=== PATIENT | female | born 1950 | race Hispanic/Latino ===

== ENCOUNTER 2017-11-05 08:54 | Emergency (ER) | payer OTHER ==
[2017-11-05] MEDS ORDERED: ZOFRAN IV ONE (09:40)
[2017-11-05] MEDS ORDERED: SUBLIMAZE IV ONE (09:40)
--- NOTE | 2017-11-05 09:57 | Emergency Department Report ---
HPI - General Chief Complaint: Fall Time Seen by Provider: 11/05/17 09:29 - HPI HPI: Room 3 The patient is a 67-year-old female presenting with a chief complaint of pain after fall. The patient states this morning at approximately 06:30 she tripped while getting out of bed and landed on her right shoulder. The patient states she also struck her head but did not lose consciousness. Patient complains of pain in the right shoulder, elbow and wrist. The patient gives her pain a score of "15/10." Location: [See above] Duration: [See above] Quality: Pain Severity: "15/10" Modifying factors: [see above] Context: [see above] Mode of transportation: [not driving] ED Past Medical Hx - Past Medical History Previous Medical History?: Yes Hx Hypertension: Yes Hx Diabetes: Yes Hx Psychiatric Treatment: Yes (depression) Additional medical history: neuropathy - Surgical History Past Surgical History?: No Additional Surgical History: Right knee repair, partial hysterectomy - Family History Family history: no significant - Social History Smoking Status: Former Smoker (none 4 years) Substance Use Type: None - Medications Home Medications: Home Medications Medication Instructions Recorded Confirmed Last Taken Type HYDROcodone/APAP 5-325 [[place] 1 - 2 each PO Q4-6H PRN #30 tablet 11/05/17 Unknown Rx 5/325] ED Review of Systems ROS: Stated complaint: RT SHOULDER PAIN/FALL Other details as noted in HPI Constitutional: no symptoms reported Eyes: denies: eye pain ENT: denies: throat pain Cardiovascular: denies: chest pain Gastrointestinal: denies: abdominal pain Genitourinary: denies: dysuria Musculoskeletal: arthralgia, myalgia. denies: back pain Neurological: denies: headache Physical Exam - Physical Exam Vital Signs: Vital Signs 11/05/17 11/05/17 11/05/17 09:13 09:35 09:47 Temperature 98.4 F Pulse Rate 65 Respiratory 16 16 16 Rate Blood Pressure 127/59 O2 Sat by Pulse 97 97 Oximetry Physical Exam: GENERAL: The patient is well-developed well-nourished female sitting on stretcher with right upper extremity and sling. BUN mild discomfort. [] HEENT: Normocephalic. Approximately 3 cm diameter hematoma to the mid forehead. Extraocular motions are intact. Patient has moist mucous membranes. There are no raccoon eyes. NECK: Supple. There is no axial tenderness to palpation or step-off CHEST/LUNGS: Clear to auscultation. There is no respiratory distress noted. HEART/CARDIOVASCULAR: Regular. There is no tachycardia. There is no gallop rub or murmur. ABDOMEN: Abdomen is soft, nontender. Patient has normal bowel sounds. There is no abdominal distention. SKIN: There is no rash. There is no edema. There is no diaphoresis. NEURO: The patient is awake, alert, and oriented. The patient is cooperative. The patient has no focal neurologic deficits. The patient has normal speech. Cranial nerves II through XII grossly intact however cranial nerve XI not tested secondary to patient having severe pain with movement of the right shoulder MUSCULOSKELETAL: There is tenderness to palpation of the right shoulder, right elbow, right forearm and right wrist. There is no thoracic or lumbar axial spine tenderness. There is no tenderness to palpation of bilateral lower extremities were the left upper extremity ED Course Vital Signs 11/05/17 11/05/17 11/05/17 09:13 09:35 09:47 Temperature 98.4 F Pulse Rate 65 Respiratory 16 16 16 Rate Blood Pressure 127/59 O2 Sat by Pulse 97 97 Oximetry ED Medical Decision Making - Radiology Data Radiology results: report reviewed (CT head, CT cervical spine, right shoulder x -ray, right elbow x-ray, right forearm x-ray, right wrist x-ray), image reviewed (CT head, CT cervical spine, right shoulder x-ray, right elbow x-ray, right forearm x-ray, right wrist x-ray) interpreted by me: Right shoulder l-afu-qajtgoxbjb humeral head fracture Right elbow e-jlt-bccrprtv radial head fracture Right forearm z-yfk-tnqqlzax radial head fracture Right wrist x-ray-no acute fracture [facility] [address] [place] [address] Cat Scan Report Signed Patient: FABRICE DENNIS MR#: [id number] : 1950 Acct:[id number] Age/Sex: 67 / F ADM Date: 11/05/17 Loc: ED Attending Dr: Ordering Physician: JAVIER RAMIREZ MD Date of Service: 11/05/17 Procedure(s): CT head/brain wo con Accession Number(s): [id number] cc: JAVIER RAMIRZE MD CT HEAD WITHOUT CONTRAST INDICATION: Head injury after fall. COMPARISON: None similar. FINDINGS: Noncontrast head CT slightly limited due to patient's head tilt/positioning, though demonstrates symmetric, age-appropriate ventricles and sulci. Approximately 5 mm right ganglionic lacunar infarct, axial image 29, series 2. No acute infarct, hemorrhage, mass effect or midline shift. No abnormal extra axial fluid collections. Normal posterior fossa with preserved basilar cisterns. Normal imaged eye globes. Streak artifact from few radiopaque dental fillings. Numerous missing teeth also noted. Moderate rightward nasal septal deviation and approximately 5 mm rightward nasal septal spur, axial image 12. Clear imaged paranasal sinuses and mastoid air cells. Slight atherosclerotic ICA calcifications. Intact calvarium. Slight left frontal scalp swelling suspected, axial image 40. CONCLUSION: No acute intracranial CT abnormality with slight left scalp swelling suspected and various other incidental findings, as above. Please correlate. Thank you for the opportunity to participate in this patient's care. Transcribed By: RS Dictated By: CHIKI CISNEROS MD Electronically Authenticated By: CHIKI CISNEROS MD Signed Date/Time: 11/05/17 1023 DD/ 1017 TD/TT: 11/05/17 1023 [facility] [address] [place] [address] Cat Scan Report Signed Patient: FABRICE DENNIS MR#: [id number] : 1950 Acct:[id number] Age/Sex: 67 / F ADM Date: 11/05/17 Loc: ED Attending Dr: Ordering Physician: JAVIER RAMIREZ MD Date of Service: 11/05/17 Procedure(s): CT cervical spine wo con Accession Number(s): [id number] cc: JAVIER RAMIREZ MD CT CERVICAL SPINE WITHOUT CONTRAST INDICATION: Head injury after fall. COMPARISON: None similar. FINDINGS: Noncontrast axial, sagittal and coronal CT reconstructions through the cervical spine demonstrate normal imaged intracranial appearance. Rightward nasal septal deviation and septal spur noted. Slight right maxillary sinus mucosal thickening inferiorly. Clear mastoid air cells. Streak artifact from few radiopaque dental material limits exam. Intact craniocervical articulation with normal prevertebral soft tissues and the airway. Normal dens, occipital condyles and anterior and posterior arches of C1. Advanced degenerative changes noted from C4-C7 with severe disc narrowing, osteophyte formation and sclerosis, greatest at C5-C6. Slight degenerative loss of C5 and C6 vertebral body heights. Assessment of the spinal canal itself compromised from C6 inferiorly due to artifact from shoulder soft tissues. Normal imaged thyroid. Slight biapical scarring. On the obtained axial images: C2-C3 demonstrates moderate facet arthropathy, left more than right. C4-C5 also demonstrates moderate right and mild left facet arthropathy. Bilateral uncovertebral spurring as well. C4-C5 also demonstrates moderate right and mild left facet arthropathy. Right more than left uncovertebral spurring. C5-C6 demonstrates mild bilateral facet arthropathy. Mild diffuse disc bulge and left more than right uncovertebral spurring with left neural foraminal narrowing suspected as on axial image 87, series 5. C6-C7 demonstrates moderate right and mild left facet arthropathy, axial image 92. C7-T1 also demonstrate bilateral facet arthropathy, left more than right, axial image 99. CONCLUSION: No acute cervical spine CT abnormality with multilevel degenerative changes and other findings, as described. Please correlate. Thank you for the opportunity to participate in this patient's care. Transcribed By: RS Dictated By: CHIKI CISNEROS MD Electronically Authenticated By: CHIKI CISNEROS MD Signed Date/Time: 11/05/17 1037 DD/ 1024 TD/TT: 11/05/17 1037 [facility] [address] [place] [address] XRay Report Signed Patient: FABRICE DENNIS MR#: [id number] : 1950 Acct:[id number] Age/Sex: 67 / F ADM Date: 11/05/17 Loc: ED Attending Dr: Ordering Physician: JAVIER RAMIREZ MD Date of Service: 11/05/17 Procedure(s): XR shoulder 2+V RT Accession Number(s): [id number] cc: JAVIER RAMIREZ MD Fluoro Time In Minutes: RIGHT SHOULDER, 3 VIEWS: HISTORY: right shoulder pain. Comminuted fracture of the right humeral head and neck is identified. There is probable intra-articular extension at the glenohumeral joint. There is normal articulation at the acromioclavicular joint. The soft tissues are unremarkable. IMPRESSION: Comminuted fracture of the right humeral head and neck. Transcribed By: TTR Dictated By: KRAIG TRAN JR, MD Electronically Authenticated By: KRAIG TRAN JR, MD Signed Date/Time: 11/05/17 104 DD/ 104 TD/TT: 11/05/17 104 [facility] [address] [place] [address] XRay Report Signed Patient: FABRICE DENNIS MR#: [id number] : 1950 Acct:[id number] Age/Sex: 67 / F ADM Date: 11/05/17 Loc: ED Attending Dr: Ordering Physician: JAVIER RAMIREZ MD Date of Service: 11/05/17 Procedure(s): XR forearm RT Accession Number(s): [id number] cc: JAVIER RAMIREZ MD Fluoro Time In Minutes: RIGHT FOREARM, 2 views: History: Pain after fall. A very subtle nondisplaced fracture of the lateral radial head is suspected. The remainder of the radius and ulna are grossly intact. The soft tissues are unremarkable. IMPRESSION: Nondisplaced radial head fracture. Transcribed By: TTR Dictated By: KRAIG TRAN JR, MD Electronically Authenticated By: KRAIG TRAN JR, MD Signed Date/Time: 11/05/171048 DD/ 47 TD/TT: 11/05/17 104 Right wrist x-ray to see his regular radiologist) C-right wrist volar soft tissue swelling possible without acute bony abnormality. - Differential Diagnosis closed head injury, shoulder dislocation, shoulder fracture Critical care attestation.: If time is entered above; I have spent that time in minutes in the direct care of this critically ill patient, excluding procedure time. ED Disposition Clinical Impression: Fracture of humeral head, right, closed, Right radial head fracture, Closed head injury Disposition: - TO HOME OR SELFCARE Is pt being admited?: No Does the pt Need Aspirin: No Instructions: Arm Fracture in Adults (ED) Additional Instructions: Return to the emergency department immediately should you develop worsening symptoms, fever, inability to tolerate food or liquid or any other concerns. Prescriptions: HYDROcodone/APAP 5-325 [[place] 5/325] 1 - 2 each PO Q4-6H PRN #30 tablet PRN Reason: Pain Referrals: LAURA MONTANO MD [Staff Physician] - 2-3 Days (Dr. Montano is an orthopedic surgeon. Please follow up with him for further evaluation) Time of Disposition: 12:03
--- NOTE | 2017-11-05 10:30 | Cat Scan Report ---
CT HEAD WITHOUT CONTRAST INDICATION: Head injury after fall. COMPARISON: None similar. FINDINGS: Noncontrast head CT slightly limited due to patient's head tilt/positioning, though demonstrates symmetric, age-appropriate ventricles and sulci. Approximately 5 mm right ganglionic lacunar infarct, axial image 29, series 2. No acute infarct, hemorrhage, mass effect or midline shift. No abnormal extra axial fluid collections. Normal posterior fossa with preserved basilar cisterns. Normal imaged eye globes. Streak artifact from few radiopaque dental fillings. Numerous missing teeth also noted. Moderate rightward nasal septal deviation and approximately 5 mm rightward nasal septal spur, axial image 12. Clear imaged paranasal sinuses and mastoid air cells. Slight atherosclerotic ICA calcifications. Intact calvarium. Slight left frontal scalp swelling suspected, axial image 40. CONCLUSION: No acute intracranial CT abnormality with slight left scalp swelling suspected and various other incidental findings, as above. Please correlate. Thank you for the opportunity to participate in this patient's care.
--- NOTE | 2017-11-05 10:44 | Cat Scan Report ---
CT CERVICAL SPINE WITHOUT CONTRAST INDICATION: Head injury after fall. COMPARISON: None similar. FINDINGS: Noncontrast axial, sagittal and coronal CT reconstructions through the cervical spine demonstrate normal imaged intracranial appearance. Rightward nasal septal deviation and septal spur noted. Slight right maxillary sinus mucosal thickening inferiorly. Clear mastoid air cells. Streak artifact from few radiopaque dental material limits exam. Intact craniocervical articulation with normal prevertebral soft tissues and the airway. Normal dens, occipital condyles and anterior and posterior arches of C1. Advanced degenerative changes noted from C4-C7 with severe disc narrowing, osteophyte formation and sclerosis, greatest at C5-C6. Slight degenerative loss of C5 and C6 vertebral body heights. Assessment of the spinal canal itself compromised from C6 inferiorly due to artifact from shoulder soft tissues. Normal imaged thyroid. Slight biapical scarring. On the obtained axial images: C2-C3 demonstrates moderate facet arthropathy, left more than right. C4-C5 also demonstrates moderate right and mild left facet arthropathy. Bilateral uncovertebral spurring as well. C4-C5 also demonstrates moderate right and mild left facet arthropathy. Right more than left uncovertebral spurring. C5-C6 demonstrates mild bilateral facet arthropathy. Mild diffuse disc bulge and left more than right uncovertebral spurring with left neural foraminal narrowing suspected as on axial image 87, series 5. C6-C7 demonstrates moderate right and mild left facet arthropathy, axial image 92. C7-T1 also demonstrate bilateral facet arthropathy, left more than right, axial image 99. CONCLUSION: No acute cervical spine CT abnormality with multilevel degenerative changes and other findings, as described. Please correlate. Thank you for the opportunity to participate in this patient's care.
--- NOTE | 2017-11-05 10:48 | XRay Report ---
RIGHT ELBOW RADIOGRAPHS INDICATION: Pain after fall. COMPARISON: None similar. FINDINGS: An AP and somewhat suboptimally positioned lateral right elbow radiographs demonstrate grossly intact bony articulation and appearance. No abnormal fat pad sign appreciated with grossly unremarkable soft tissues. CONCLUSION: No acute right elbow radiographic abnormality, as described. Please correlate. Thank you for the opportunity to participate in this patient's care.
--- NOTE | 2017-11-05 10:51 | XRay Report ---
RIGHT WRIST RADIOGRAPHS INDICATION: Pain after fall. COMPARISON: None similar. FINDINGS: AP, lateral and oblique right wrist radiographs demonstrate intact articulation with preserved carpal rows. Demineralized bones. Mild volar soft tissue swelling at the wrist suspected on the lateral view. CONCLUSION: Right wrist volar soft tissue swelling possible without acute bony abnormality, as described. Please correlate. Thank you for the opportunity to participate in this patient's care.
--- NOTE | 2017-11-05 10:59 | XRay Report ---
RIGHT SHOULDER, 3 VIEWS: HISTORY: right shoulder pain. Comminuted fracture of the right humeral head and neck is identified. There is probable intra-articular extension at the glenohumeral joint. There is normal articulation at the acromioclavicular joint. The soft tissues are unremarkable. IMPRESSION: Comminuted fracture of the right humeral head and neck.
--- NOTE | 2017-11-05 11:00 | XRay Report ---
RIGHT FOREARM, 2 views: History: Pain after fall. A very subtle nondisplaced fracture of the lateral radial head is suspected. The remainder of the radius and ulna are grossly intact. The soft tissues are unremarkable. IMPRESSION: Nondisplaced radial head fracture.
[2017-11-05] MEDS ORDERED: DILAUDID IV ONE (13:16)
[2017-11-05] MEDS ORDERED: TYLENOL #3 ONE (18:07)
[2017-11-05] MEDS ORDERED: TYLENOL #3 PO ONE (18:08)
[2017-11-05 18:17] VITALS: BP 112/69
== END 2017-11-05 18:21 | disposition home or self-care (01) ==
LOC: ED 08:54
DX: S42.291A Other displaced fracture of upper end of right humerus, initial encounter for closed fracture (principal); S52.124A Nondisplaced fracture of head of right radius, initial encounter for closed fracture; S09.90XA Unspecified injury of head, initial encounter; I10 Essential (primary) hypertension; E11.9 Type 2 diabetes mellitus without complications; F32.2 Major depressive disorder, single episode, severe without psychotic features; Z90.711 Acquired absence of uterus with remaining cervical stump; Z87.891 Personal history of nicotine dependence; W01.0XXA Fall on same level from slipping, tripping and stumbling without subsequent striking against object, initial encounter; Y93.89 Activity, other specified; Y92.89 Other specified places as the place of occurrence of the external cause; Y99.8 Other external cause status
CPT/HCPCS: 29105; 70450; 72125; 73030; 73070; 73090; 73110; 96374; 96375; 99284; J1170; J2405; J3010